=== PATIENT | female | born 1960 | race Caucasian/White ===

== ENCOUNTER → 2023-05-31 07:48 | Outpatient (REF) | payer BC, SELFPAY | LOC: WDC 07:48 | PROVIDERS: ATTENDING PHYSICIAN Nurse Practitioner Family | DX: Z12.31 Encounter for screening mammogram for malignant neoplasm of breast (principal) | CPT/HCPCS: 77063; 77067 ==

== ENCOUNTER → 2023-06-25 06:53 | Outpatient (REF) | payer BC, SELFPAY | LOC: HWRAD 06:53 | PROVIDERS: ATTENDING PHYSICIAN Nurse Practitioner Family | DX: Z13.820 Encounter for screening for osteoporosis (principal); Z78.0 Asymptomatic menopausal state | CPT/HCPCS: 77080 ==

== ENCOUNTER → 2023-11-26 07:33 | Outpatient (REF) | payer BC, SELFPAY | LOC: HWRAD 07:33 | PROVIDERS: ATTENDING PHYSICIAN Nurse Practitioner Primary Care; FAMILY PHYSICIAN Nurse Practitioner Family | DX: D72.829 Elevated white blood cell count, unspecified (principal) | CPT/HCPCS: 76705 ==

== ENCOUNTER → 2023-12-12 07:00 | Outpatient (REF) | payer BC, SELFPAY ==
[2023-12-12 07:35] VITALS: BP 134/58; BP_SYST 101
[2023-12-12 07:38] LABS: Hematocrit 40.5 % (37.0-47.0); Hemoglobin 13.5 g/dL (12.0-16.0); Mean Corp Hgb Conc. 33.3 g/dL (33.0-37.0); Mean Corpuscular Hgb 29.5 pg (27.0-31.0); Mean Corpuscular Volume 88.6 fL (81.0-99.0); Mean Platelet Volume 10.2 fL (7.4-10.4); Platelet Count 547 10^3/uL (130-400); Red Blood Cell Count 4.57 10^6/uL (4.20-5.40); Red Cell Dist. Width 15.9 % (11.5-14.5); White Blood Cell Count 14.8 10^3/uL (4.8-10.8)
[2023-12-12 07:39] LABS: INR 1.11; PT 14.3 Sec (11.4-14.6)
[2023-12-12 07:52] LABS: % Basophils 5.4 % (0-2); % Eosinophils 1.5 % (0-6); % Immature Granulocytes 3.2 % (0-0.5); % Lymphocytes 17.9 % (20.5-51.1); % Monocytes 9.4 % (1.7-9.3); % Neutrophils 62.6 % (42.2-75.2); Absolute Basophils 0.8 10^3/uL (0-0.2); Absolute Eosinophils 0.2 10^3/uL (0-0.7); Absolute Immature Granulocytes 0.5 10^3/uL (0-0.05); Absolute Lymphocytes 2.6 10^3/uL (1.2-3.4); Absolute Monocytes 1.4 10^3/uL (0.1-0.6); Absolute Neutrophils 9.2 10^3/uL (1.4-6.5); Nucleated Red Blood Cells % 0 %
[2023-12-12] MEDS: NSS (PRESERVATIVE FREE) 0.25 ML IV (08:27)
[2023-12-12] MEDS: FLUSH (NSS) 1 FLUSH IV (08:27)
[2023-12-12] MEDS: ATIVAN 0.5 MG IV (08:27)
[2023-12-12 09:18] VITALS: BP 143/65
== END ==
LOC: RADI 07:00
PROVIDERS: ATTENDING PHYSICIAN Internal Medicine Hematology & Oncology; FAMILY PHYSICIAN Nurse Practitioner Family
DX: C92.10 Chronic myeloid leukemia, BCR/ABL-positive, not having achieved remission (principal)
CPT/HCPCS: 88305; 88311; 88312; 36415; 38222; 77012; 85025; 85610; 88313

== ENCOUNTER → 2024-01-14 10:05 | Outpatient (REF) | payer BC, SELFPAY | LOC: RCS 10:05 | PROVIDERS: ATTENDING PHYSICIAN Internal Medicine Hematology & Oncology; FAMILY PHYSICIAN Nurse Practitioner Family; OTHER PHYSICIAN Internal Medicine Rheumatology | DX: C92.10 Chronic myeloid leukemia, BCR/ABL-positive, not having achieved remission (principal) | CPT/HCPCS: 93306; 93356 ==

== ENCOUNTER → 2024-06-02 14:20 | Outpatient (REF) | payer BC, SELFPAY | LOC: WDC 14:20 | PROVIDERS: ATTENDING PHYSICIAN Nurse Practitioner Family | DX: Z12.31 Encounter for screening mammogram for malignant neoplasm of breast (principal) | CPT/HCPCS: 77063; 77067 ==